=== PATIENT | male | born 1985 | race African-American/Black ===

== ENCOUNTER 2021-12-14 09:31 | Emergency (ER) | payer OTHER, SELFPAY ==
[2021-12-14 09:34] VITALS: BP 119/62; PULSE 68; RESP 15; TEMP 36.9; BMI 24.2
[2021-12-14] MEDS: Acetaminophen 325 MG TABLET 975 MG PO (10:16)
[2021-12-14] MEDS: cephALEXin 500 MG CAPSULE PO (10:17)
[2021-12-14] MEDS: Diphth,Pertus(ACell),Tet Adult 0.5 ML SYRINGE IM (10:18)
[2021-12-14] MEDS: Lidocaine HCl 2 % MPF 5 ML VIAL SUBCUT (10:20)
--- NOTE | 2021-12-14 10:46 | ED_ITS ---
HPI - Skin/Abscess/Foreign Bdy General Chief complaint: Wound/Laceration Stated complaint: Head lac/work inj Time Seen by Provider: 12/14/21 10:07 Source: patient Mode of arrival: ambulatory Limitations: no limitations History of Present Illness HPI narrative: 35-year-old male presenting to the ED with complaints of a head injury while he was at work he said he stood up and hit himself on the toilet paper dispenser and noticed some blood at the top of his head he did not lose consciousness and he is not on any blood thinners. He reports that he does not believe that the head injury was that significant he reports that he actually had some tenderness palpation and soft tissue swelling to his scalp and he was unsure why but he believes he might have an abscess. He denies any other symptoms complaints conc erns or injuries at this time. MD complaint: abscess/boil Onset (ago): day(s) Location: head Severity: moderate Quality: aching and constant Pain Consistency: constant Relieving factors: none Exacerbating factors: palpation Context: none Associated symptoms: denies other symptoms Treatments prior to arrival: none Related Data Previous Rx's Medication Instructions Recorded cephalexin 500 mg capsule 500 mg PO Q6H 10 Days #40 cap 12/14/21 doxycycline monohydrate 100 mg 100 mg PO BID 10 Days #20 tab 12/14/21 tablet ibuprofen 800 mg tablet 800 mg PO Q8H PRN #14 tab 12/14/21 tramadol 50 mg tablet 50 mg PO Q8H PRN #14 tab 12/14/21 Allergies Allergy/AdvReac Type Severity Reaction Status Date / Time No Known Allergies Allergy Unverified 06/01/20 17:36 Review of Systems Review of Systems: Constitutional : Denies history of same, Denies any other sites involved, Denies IV drug use, Denies history of MRSA, Denies swollen glands, Denies injury, Denies Fever, Denies Chills, + Sig Pain, Denies Systemic symptoms Cardiovascular : No Chest Pain, No SOB Respiratory : No Dyspnea Gastrointestinal : No abdominal pain Musculoskeletal : No Joint Swelling Skin : + abscess with surrounding erythema, No skin laceration, No Foreign bodies, No spreading rash, Denies bites, Denies discharge, Neuro : No Weakness, No Numbness/tingling Psych : No SI/HI/thoughts of self injury Yes all other systems are reviewed and are negative PMFSH Past Medical History Attestation statement: The following information was validated with the patient. Social History Social History Advance Directives: No Advance Directives Information Provided: No Physical Exam Vital Signs: Vital Signs: Last Vital Signs Temp 98.4 F 12/14/21 09:34 Pulse 68 12/14/21 09:34 Resp 15 12/14/21 09:34 BP 119/62 12/14/21 09:34 BMI result Body Mass Index 24.2 vital signs have been reviewed as normal and appeared to be correct. Blood pressure normal Heart rate normal. Respiration rate normal. Temperature normal. Oxygen saturation normal. Appearance: Alert. Oriented X3. No acute distress. Head: To the top of the patient's scalp left parietal aspect patient has an abscess with mild bloody drainage and surrounding erythema. No foreign bodies or obvious scalp depression. No deformities noted. The rest of the head is within normal limits and atraumatic. Eyes: PERRLA. EOMI. Conjunctiva and sclera normal. Eyelids normal. ENT: Pharynx normal. Uvula midline. Moist mucous membranes. Neck: Normal inspection. Neck supple. FROM. Nontender. CVS: Normal heart rate and rhythm. Respiratory: No respiratory distress. Painless inspiration. Skin: Skin warm and dry. Normal skin color. Normal skin turgor. No rashes/lesions/lacerations noted. Extremities: No lower extremity edema. Extremities exhibit normal range of motion. Extremities nontender. Neuro: Oriented X 3. No motor deficit. No sensory deficit. Reflexes normal. Normal steady gait. No focal neuro deficits noted. Vascular: + radial pulses/+ 2 distal pedal pulses/+2 dorsalis pedis b/l. Normal cap refill. No cyanosis noted to upper extremity nails and lower extremity toes nails. Course Course Course Narrative: IMP/Plan: abscess. No systemic toxicity, and pt looks well. + surrounding cellulitis. Not c/w nec fasc/ myositis/ DVT/ osteomyelitis. patient now status post I&D of abscess and patient tolerated procedure well. tetanus update at this time. No complications. No labs or imaging indicated at this time. Will DC home antibiotics and symptomatic treatment instructions return if any new or worsening symptoms to follow up with primary care provider. Patient understands agrees this plan. MDM - Skin/Abscess/Foreign Bdy Medical Records Attestation: I reviewed the patient's medical records. Procedures Abscess I/D Site: scalp Side (if applicable): left Local Anesthetic: lidocaine 2% Amount of anesthesia used (mL): 4 Technique: incised with blade Amount of fluid expressed (mL): 5 Sent for culture/gram staining?: No Irrigation: Yes Packing used?: none Complications: other (No complication) Discharge Plan Discharge Clinical Impression: Abscess, Head injury, Work related injury Patient Disposition: Home, Self-Care Instructions: Head Injury (ED), Return to Work Instructions (ED), Abscess Incision and Drainage (DC) Prescriptions: New doxycycline monohydrate 100 mg tablet 100 mg PO BID 10 Days Qty: 20 0RF cephalexin 500 mg capsule 500 mg PO Q6H 10 Days Qty: 40 0RF ibuprofen 800 mg tablet 800 mg PO Q8H PRN (Reason: pain) Qty: 14 0RF tramadol 50 mg tablet 50 mg PO Q8H PRN (Reason: pain) Qty: 14 0RF Rx Instructions: May partially fill upon patient request Referrals: [facility] [Provider Group] - 2 days Stand Alone Forms: Work/School Release
== END 2021-12-14 11:17 | disposition home or self-care (01) ==
PROVIDERS: Emergency Provider Emergency Medicine
DX: S09.90XA Unspecified injury of head, initial encounter (principal); W22.09XA Striking against other stationary object, initial encounter; L02.811 Cutaneous abscess of head [any part, except face]; Y93.89 Activity, other specified; Y92.59 Other trade areas as the place of occurrence of the external cause; Y99.0 Civilian activity done for income or pay
CPT/HCPCS: 10060; 90471; 90715; 99284

== ENCOUNTER 2022-07-25 12:40 | Outpatient (REF) | payer MEDICAID, SELFPAY ==
--- NOTE | ~2022-07-25 | CT_ITS ---
EXAMINATION: CT ABDOMEN AND PELVIS WITH CONTRAST CLINICAL INFORMATION: Ventral hernia COMPARISON: None TECHNIQUE: Multidetector volumetric images were obtained from the superior aspect of the liver through the pubic symphysis following administration 85 mL of Omnipaque 350 intravenous contrast. Sagittal and coronal reformatted images were obtained on the technologist's workstation. Oral contrast: No This CT examination was performed using dose optimization techniques as appropriate, variously including the following: *Automated exposure control *Adjustment of mA and/or kV according to patient size (this includes techniques or standardized protocols for targeted exams where dose is matched to indication/reason for exam; i.e. extremities or head) *Use of iterative reconstruction technique DLP: 274 mGy-cm FINDINGS: LUNG BASES: The visualized lung bases are unremarkable. LIVER, GALLBLADDER, AND BILIARY TREE: There are innumerable small liver low-attenuation lesion in the liver probably representing small cysts or biliary hamartomas, largest measuring 6 mm. The gallbladder is unremarkable with no evidence of radiopaque gallstones, gallbladder wall thickening, or obvious pericholecystic inflammatory changes. PANCREAS: Unremarkable. SPLEEN: Unremarkable. ADRENAL GLANDS: Unremarkable. KIDNEYS AND URETERS: The kidneys are normal in size, shape, and attenuation. No hydronephrosis, hydroureter, or calculi seen. No perinephric stranding. BLADDER: Unremarkable. GASTROINTESTINAL TRACT: The small and large bowel are unremarkable. The appendix is unremarkable. ABDOMINAL WALL: No significant hernia is appreciated. There is increased attenuation of the subcutaneous fat in the upper midline abdominal wall/supraumbilical region for example sagittal reconstructed image 54 series 5. No defect in the abdominal wall is appreciated. This area could be better evaluated with abdominal wall ultrasound with the patient performing Valsalva maneuver. LYMPH NODES: Normal. VASCULAR: Unremarkable. PELVIC VISCERA: Unremarkable. OSSEOUS STRUCTURES: Unremarkable. CT/CT abdomen pelvis w IV con IMPRESSION: Innumerable small low-attenuation liver lesions probably representing small cysts or biliary hamartomas. No hernia seen. There is increased attenuation of the subcutaneous fat in the upper midline abdominal wall/supraumbilical region for example sagittal reconstructed image 54 series 5. No defect in the abdominal wall is appreciated. This area could be better evaluated with abdominal wall ultrasound with the patient performing Valsalva maneuver if clinically indicated. Fleischner guidelines were followed.
[2022-07-25] MEDS: iohexoL 350 MG/ML 100 ML INFUS..BTL IV (15:01)
[2022-07-25] MEDS: Barium Sulfate Oral (Vanilla) 450 ML ORAL.SUSP 900 ML PO (15:02)
== END 2022-07-25 12:41 | disposition home or self-care (01) ==
LOC: HO.CT 12:40
PROVIDERS: PCP Registered Nurse; Visit Provider Registered Nurse
DX: K43.9 Ventral hernia without obstruction or gangrene (principal)
CPT/HCPCS: 74177; Q9967

== ENCOUNTER → 2022-08-13 11:30 | Outpatient (BNVA) | payer MEDICAID, SELFPAY | PROVIDERS: PCP Registered Nurse; Visit Provider Surgery | DX: K43.9 Ventral hernia without obstruction or gangrene (principal); B36.0 Pityriasis versicolor | CPT/HCPCS: 99202 ==

== ENCOUNTER → 2022-08-27 11:35 | Outpatient (BNVA) | payer MEDICAID, SELFPAY | PROVIDERS: PCP Registered Nurse; Visit Provider Surgery | DX: K43.9 Ventral hernia without obstruction or gangrene (principal); B36.0 Pityriasis versicolor | CPT/HCPCS: 99212 ==

== ENCOUNTER → 2022-09-24 15:48 | Outpatient (BNVA) | payer MEDICAID, SELFPAY | PROVIDERS: PCP Registered Nurse; Visit Provider Surgery | DX: K43.9 Ventral hernia without obstruction or gangrene (principal) | CPT/HCPCS: 99212 ==

== ENCOUNTER 2022-11-21 09:37 | Day surgery (SDC) | payer MEDICAID, SELFPAY ==
[2022-11-18 10:33] VITALS: BMI 24.2
--- NOTE | 2022-11-20 10:56 | HO.ANESPROP2 ---
Documented by User: Sarai Kirby NP 11/20/22 10:56 HPI - Anesthesia Eval Consult details Narrative: 36yo M for Hernia Repair Ventral possible mesh PMFSH Active Problems Active Problems: All Active Problems (Updated 11/18/22 @ 10:28 by Alicia Garcia RN) Ventral hernia (Acute) Tinea versicolor (Acute) Past Medical History Medical History (Updated 11/18/22 @ 10:28 by Alicia Garcia RN) ADHD Depression Eczema Social History Social History Advance Directives: No Advance Directives Information Provided: Yes Meds Allergies Allergy/AdvReac Type Severity Reaction Status Date / Time No Known Allergies Allergy Verified 11/18/22 10:28 Home Medications Medication Instructions Recorded Confirmed Last Taken Type econazole 1 % topical cream appl topical BID 08/13/22 09/24/22 Unknown History triamcinolone acetonide 0.1 % 1 appl topical BID 08/13/22 11/18/22 Unknown History topical cream fluconazole 150 mg tablet 300 mg PO QWEEK 09/24/22 11/18/22 Unknown History Exam Exam Date and Time: November 20, 2022 1056 Height,Weight and Vital Signs: Height 5 ft 6 in Weight 68.039 kg Assessment and Plan Assessment Anesthesia Assessment: Chart Reviewed Documented by User: Roby Llanes MD 11/21/22 10:15 PMFSH Past Medical History Medical History (Updated 11/18/22 @ 10:28 by Alicia Garcia RN) ADHD Depression Eczema Family History Family history of problems with anesthesia: No Surgical History History of Problems with Anesthesia: No Social History Social History Advance Directives: No Advance Directives Information Provided: Yes Meds Allergies Allergy/AdvReac Type Severity Reaction Status Date / Time No Known Allergies Allergy Verified 11/18/22 10:28 Home Medications Medication Instructions Recorded Confirmed Last Taken Type econazole 1 % topical cream appl topical BID 08/13/22 09/24/22 Unknown History triamcinolone acetonide 0.1 % 1 appl topical BID 08/13/22 11/18/22 Unknown History topical cream fluconazole 150 mg tablet 300 mg PO QWEEK 09/24/22 11/18/22 Unknown History Exam Airway Mallampati Class: II TM Dist: >3cm Neck ROM: Full Assessment and Plan Assessment Anesthesia Assessment: Anesthesia Plan Discussed Final Anesthetic Review Family History of Problems with Anesthesia: No History of Problems with Anesthesia: No NPO: Yes ASA Class: I Final Preanesthetic Review: No Changes in Pt Med Stat, Meds/Allgs Chart Reviewed, Consent Obtained/Reviewed and Anes Risks/Benef Reviewed Patient Risk: Low Procedure Risk: Low Anesthetic Plan Anesthetic Plan: GA Disposition: Standard PACU
[2022-11-21] MEDS: Lactated Ringers 1,000 ML 100 ML IVCONT (10:02)
[2022-11-21 10:22] VITALS: BP 112/57; PULSE 67; RESP 18; TEMP 36.6; O2SAT 99
--- NOTE | 2022-11-21 11:41 | MHC.SHP ---
Pre-Procedural Eval Section A Date of Service: 11/21/22 The patient is an INPATIENT: No The History & Physical has been completed within 30 days and I have reviewed it.: Yes Section B Chief Complaint: Ventral hernia without obstruction or gangrene Allergies: Allergies Allergy/AdvReac Type Severity Reaction Status Date / Time No Known Allergies Allergy Verified 11/21/22 10:25 Plan I have reviewed the history and physical and performed a pertinent physical examination on my patient. No changes have occurred unless specified. Time Spent With Patient Time: Total time managing care of this patient today ____ minutes.
--- NOTE | 2022-11-21 11:42 | W.PM.OPN ---
Operative Note Operative Note Date of Service: 11/21/22 Narrative: Preop diagnosis: [incarcerated ventral hernia] Postop diagnosis: [Same, 10mm defect] Procedure: [] Surgeon: Chacho Bowers MD Assist: [] Anesthesia: [General LMA & local (Lidcaine/Marciane mix)] Estimated blood loss: [3cc] Specimen: [none] Intraoperative findings: [10mm fascial defect with viable properitoneal fat (reduced)] Indications: [The patient is a 36-year-old gentleman who has a small lipomatous mass consistent with a ventral hernia, however on CT scan, it was not clearly defined. Given that the patient is extremely active in the mass is more symptomatic when he is exerting himself, I suspect he has an incarcerated ventral hernia and I recommended repair. CT did not demonstrate a hernia defect as per the radiologist, however I felt there was a small fascial defect. However, I also reviewed the possible issue of finding only a lipoma in which case a symptomatic lipoma should be resected. Activity restrictions were discussed with the patient and apparently understood. The option of a 2nd opinion or continued observation was also reviewed but declined. The inherent risks s to hernia repair, possible lipoma excision, including bleeding, urinary retention, infection, bowel injury, effects of general anesthesia, seroma, and hernia recurrence, especially in the setting of increasing weight gain/obesity were all discussed at length in the patient's questions seemed to be answered. The possible need for seroma drainage or reoperation in the event of a complication such as mesh infection, bleeding/hematoma or symptomatic/infected seroma were also reviewed.] Procedure: [The patient was identified by myself in the preoperative holding area and again an operating room 3. 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 He was induced and general anesthesia administered by the anesthesiologist. Ancef per weight based protocol was ordered. Abdomen was widely prepped and draped in the usual manner for surgery using chlorprep. Preemptive local of Lidocaine, 1&/Marcaine, 0.5% with epi was infiltrated in the skin and subcutaneous tissues and a linear incision made sharply over the hernia. Dissection was carried down to the umbilical base and the umbilicus circumferentially dissected and the hernia sac dissected from the posterior umbilical dermis taking care to avoid injury. The hernia was reduced and the fascial defect transversely closed with 0 Polypropylene sutures. The operative field was inspected for hemostasis then the umbilical dermis tacked down to the fascia and hernia repair with 3-0 Polysorb suture. Subcutaneous tissues were closed with 3-0 Polysorb suture and the skin closed with a running 4-0 Monocryl subcuticular suture. There is washed and dried, Mastisol and Steri-Strips applied followed by sterile dressings. The patient tolerated the procedure well and was sent to the recover in stable condition. All sponge instrument counts were correct x2. At the patient's request I contacted Thang at [phone] to apprise him of the operation, pain management and activity restrictions. His questions seemed to be satisfactorily answered.]
[2022-11-21 12:49] VITALS: BP 125/86; PULSE 62; RESP 20; TEMP 36.4; O2SAT 98
[2022-11-21 12:54] VITALS: BP 125/88; PULSE 70; RESP 20; O2SAT 100
[2022-11-21 12:59] VITALS: BP 119/85; PULSE 61; RESP 18; O2SAT 100
[2022-11-21 13:04] VITALS: BP 123/75; PULSE 53; RESP 18; O2SAT 100
[2022-11-21 13:18] VITALS: BP 118/76; PULSE 65; RESP 16; TEMP 36.4; O2SAT 100
== END 2022-11-21 14:27 | disposition home or self-care (01) ==
LOC: HO.SSS 09:38
PROVIDERS: PCP Registered Nurse; Visit Provider Surgery
PROC: (CPT 49591; principal; 2022-11-21 11:10)
DX: K43.9 Ventral hernia without obstruction or gangrene (principal); L30.9 Dermatitis, unspecified; B36.0 Pityriasis versicolor; F90.9 Attention-deficit hyperactivity disorder, unspecified type; F32.A Depression, unspecified; Z79.899 Other long term (current) drug therapy
CPT/HCPCS: 49591; J0690; J2250; J3010

== ENCOUNTER → 2022-11-29 09:57 | Outpatient (BNVA) | payer MEDICAID, SELFPAY | PROVIDERS: PCP Registered Nurse; Referring Provider Registered Nurse; Visit Provider Surgery ==

== ENCOUNTER 2024-05-25 16:11 | Outpatient (REF) | payer MEDICAID, SELFPAY ==
[2024-05-26 04:55] LABS: HIV AB/AG Nonreactive (Nonreactive); HIV Num 1 0.06 S/CO (0.00-0.99)
[2024-05-27 14:34] LABS: RPR Rapid Plasma Reagin REACTIVE (NON-REACTIVE)
== END 2024-05-25 16:12 | disposition home or self-care (01) ==
LOC: HO.HHCL 16:11
PROVIDERS: Visit Provider Nurse Practitioner Primary Care
DX: R21 Rash and other nonspecific skin eruption (principal); J02.9 Acute pharyngitis, unspecified
CPT/HCPCS: 36415; 86592; 86593; 87389

== ENCOUNTER 2024-06-01 10:46 | Outpatient (REF) | payer MEDICAID, SELFPAY ==
[2024-06-03 08:33] LABS: RPR Rapid Plasma Reagin REACTIVE (NON-REACTIVE)
== END 2024-06-01 10:47 | disposition home or self-care (01) ==
LOC: HO.HHCL 10:46
PROVIDERS: Visit Provider Nurse Practitioner Primary Care
DX: A53.9 Syphilis, unspecified (principal)
CPT/HCPCS: 36415; 86592; 86593

== ENCOUNTER 2024-10-29 12:03 | Outpatient (REF) | payer MEDICAID, SELFPAY ==
--- OUTSIDE RECORDS SUMMARY | 2024-10-29 12:41 | XMS_ITS | Encounter Summary ---
Author Organization [employer] Address [address] [facility] [address] [place] [address] Care Team Providers Care Sales And Support Center Agent Name Role Phone ChilangoTiffany bautista Primary Care Provider + [phone] Reason for Visit * Reason Onset Date Comments Lab Orders 09/28/2024 Encounter Details Date Type Department Care Team (Late st Contact Info) Description 09/28/2024 Telephone [facility] [address] [place] [address] Jordyn Proctor RN Lab Orders Social History Tobacco Use Types Packs/Day Years Used Date Smoking Tobacco: Some Days Cigarettes Smokeless Tobacco: Never Comments:Socially/ Occasiona lly Alcohol Use Standard Drinks/Week Comments Yes 2 (1 standard drink = 0.6 oz pur e alcohol) Occasionally Sex and Gender Information Value Date Recorded Sex Assigned at Male 08/14/2022 2:46 PM EST Legal Sex Male 2:46 PM EST Gender Identity Male 08/14/2022 2:46 PM EST Sexual Orientation Bisexual 08/14/2022 2: 46 PM EST documented as of this encounter Miscellaneous Notes * Telephone Encounter - Jordyn Proctor RN - 09/29/2024 11:48 AM EST Telephone call x3 to pt to advise of below message and lab orders. No answer, left voicemail. No other number on file. Will send letter to address on file. * Telephone Encounter - Jordyn Proctor RN - 09/28/2024 1:13 PM EST Telephone call x2 to pt to advise to get outstanding labs done. No answer, left voicemail. Will task to call again. * Telephone Encounter - Jordyn Proctor RN - 09/28/2024 9:29 AM EST Telephone call to pt to advise of below message from Sara Carr NP. No answer, left voicemail to call back [facility]. Will retask to call again. -- PCP Sara Carr NP Please outreach pt to remind him to get repeat labs done to confirm treatment for syphilis was successful. Thanks. documented in this encounter Plan of Treatment Not on file documented as of this encounter Visit Diagnoses Not on filedocumented in this encounter Care Teams Sales And Support Center Agent Relationship Specialty Start Date End Date Tiffany Bailey DO [address] [place] [address] PCP - General Family Medicine 05/26/24 documented as of this encounter
--- OUTSIDE RECORDS SUMMARY | 2024-10-29 12:41 | XMS_ITS | Encounter Summary ---
Author Organization [employer] Address [address] [facility] [address] [place] [address] Care Team Providers Care Chronometer Assembler Name Role Phone Tiffany Bailey DO Primary Care Provider + [phone] Reason for Visit * Reason Comments Pre-visit Planning Pre visit planning L VM Encounter Details Date Type Department Care Team ([facility] st Contact Info) Description 10/19/2024 Patient Outreach [facility] [address] [place] [address] Tiffany Bailey DO [address] [place] [address] Pre-visit Planning (Pre visit planning LVM ) Social History Tobacco Use Types Packs/Day Years [...] PM EST documented as of this encounter Progress Notes * Christi Saunders - 10/19/2024 1:50 PM EST RUBY Arreola placed outbound call to patient to complete pre-visit planning. No answer at this time.Patient name and were not confirmed. CC left voicemail requesting return call. Direct contact information provided. documented in this encounter Plan of Treatment Not on file documented as of this encounter Visit Diagnoses Not on filedocumented in this encounter Care Teams Chronometer Assembler Relationship Specialty Start Date End Date Tiffany Bailey DO [address] [place] [address] PCP - General Family Medicine 05/26/24 documented as of this encounter
--- OUTSIDE RECORDS SUMMARY | 2024-10-29 12:41 | XMS_ITS | Clinical Summary ---
Author Organization [employer] Address [address] [facility] [address] [place] [address] Care Team Providers Care First Responder Name Role Phone ChilangoTiffany bautista Primary Care Provider [phone] Allergies Active Allergy Reactions Criticality Noted Date Comments Coconut Fatty Acid Rash,Shortness of breath,Swelling High 07/07/2017 Coconut Flavoring Agent (Non-Screening) 07/23/2022 Other reaction(s): Hives Medications fluconazole (Diflucan) 150 MG tabletIndication s:Tinea versicolor Take 2 tablets by mouth once weekly x 2 weeks 4 tablet 2 Active Additional Information Patient not taking.Reported on 03/28/2023 econazole nitrate 1 % creamIndications :Atopic dermatitis, unspecified type APPLY BY TOPICAL ROUTE 2 TIMES EVERY DAY TO THE AFFECTED AND SURROUNDING AREAS OF SKIN 85 g 1 3 Active cyclobenzaprine (Flexeril) 10 MG tablet Take 1 tablet (10 mg) by mouth 3 times daily for 10 days. 30 tablet 4 Active triamcinolone (Kenalog) 0.1 % creamIndications :Eczema, unspecified type Apply topically 2 times daily. As needed for eczema 80 g 1 4 Active ciclopirox (Penlac) 8 % solutionIndicati ons:Fungal toenail infection Apply topically 2 times daily. 6 mL 5 4 Active nicotine polacrilex (Nicorette) 4 MG gum Chew 1 each (4 mg) if needed for smoking cessation. 100 each 5 11/29/19 25 Active Active Problems Problem Noted Date Diagnosed Date Visit for preventive health examination 10/29/19 25 Assessment & Plan (10/29/2024 12:07 PM EST): Discussed with patient re increase fresh fruit and vegetable intake. Counseled re moderate exercise as tolerated, up to 20min/d Patient feels safe at home. Eye exam: overdue will refer to eye clinic Vaccinations: influenza immunization today, order TB test and immunization titers. Dental visit: overdue, I gave him information about our dental clinic to make an appointment. Pruritus of groin in male 10/29/2024 Assessment & Plan (10/29/2024 12:10 PM EST): No evidence of eczema or rash Advised to use moisturizing cream. Will order labs. Decreased vision in both eyes 10/29/2024 Smoking 10/29/2024 Atopic dermatitis 07/23/2022 Attention deficit hyperactivity disorder 022 Depressive disorder 07/23/2022 Cough 04/01/2021 Acute pharyngitis 03/29/2021 Encounters Date Type Department Care Team Description 10/29/2024 10:45 AM EST Office Visit [address] [address] Nata Loredo MD Smoking (Primary Dx); Depressive disorder; Visit for preventive health examination; Pruritus of groin in male; Decreased vision in both eyes; Exposure to STD; Need for vaccination 10/29/2024 Travel 10/28/[address] [address] Tiffany Bailey DO Chart prep 10/19/2024 Patient Outreach [address] [address] Tiffany Bailey DO Pre-visit Planning (Pre visit planning LVM ) 09/28/[address] [address] Jordyn Proctor, clinic physician Orders 09/28/2024 Orders Only [address] [address] Sara Carr ANP History of syphilis (Primary Dx) from Last 3 Months Immunizations Name Administration Dates Next Due Hep A, Adult 03/28/2023 Hep B, adult 03/28/2023 Influenza, seasonal, injectable, preservative fr ee 10/29/2024 Pneumococcal Polysaccharide PPSV23 07/07/2017 Tdap 12/14/2021,07/07/2017 Social History Tobacco Use Types Packs/Day Years Used Date Smoking Tobacco: Some Days Cigarettes Smokeless Tobacco: Never Tobacco Cessation:Ready to Q uit: Not Asked; Counseling Given: Not Answered Comments:Socially/ Occasionally Alcohol Use Standard Drinks/Week Comments Yes 2 (1 standard drink = 0.6 oz pur e alcohol) Occasionally Sex and Gender Information Value Date Recorded Sex Assigned at Male 08/14/2022 2:46 PM EST Legal Sex Male 2:46 PM EST Gender Identity Male 08/14/2022 2:46 PM EST Sexual Orientation Bisexual 08/14/2022 2: 46 PM EST Last Filed Vital Signs Vital Sign Reading Time Taken Comments Blood Pressure 151/84 10/29/2024 10:58 AM EST Pulse 89 10/29/2024 10:58 AM EST Temperature 35.8 ??C (96.5 ??F) 10/29/2024 10:[address] Respiratory Rate 18 05/25/2024 3:21 PM EDT Oxygen Saturation 100% 10/29/2024 10:58 AM EST Inhaled Oxygen Concentration - - Weight 67.4 kg (148 lb 8 oz) 10/29/2024 10:58 AM EST Height 166.4 cm (5' 5.5 ) 10/29/2024 10:58 AM ES T Body Mass Index 24.34 10/29/2024 10:58 AM EST Plan of Treatment Health Maintenance Due Date Last Done Comments Depression Screening 1987 SDOH Screening 1987 Alcohol/Substance Use Screening 1999 Family Planning (PISQ) 12/22/2002 Pneumococcal Vaccine: Pediatrics (0 to 5 Years) and At-Risk Patients (6 to 49) Years) (2 of 2 - PCV) 07/07/2018 07/07/2017 Hepatitis B Vaccines (2 of 3 - 19+ 3-dose series) 04/25/2023 03/28/2023 COVID-19 Vaccine ( - 2023-2 5 season) 2024 11/06/2022, 01/11/2021, 12/21/2020 Tobacco Screening 10/29/2025 10/29/2024 Lipid Panel 07/23/2027 07/23/2022 DTaP/Tdap/Td Vaccines (3 - T d or Tdap) 12/15/2031 12/14/2021, 07/07/2017 Zoster Vaccines (1 of 2) 12/22/2037 RSV Patients and Patients Aged 60 years or older (1 - 1-dose 75+ series) 12/22/2062 Hepatitis C Screening Completed 07/23/2022 Hepatitis A Vaccines Aged Out 03/28/2023 No long er eligible based on patient's age to complete this topic HIV Screening Completed 05/25/2024, 07/23/2022 Influenza Vaccine Completed 10/29/2024 HIB Vaccines Aged Out No longer eligi ble based on patient's age to complete this topic HPV Vaccines Aged Out No longer eligi ble based on patient's age to complete this topic IPV Vaccines Aged Out No longer eligi ble based on patient's age to complete this topic Meningococcal Vaccine Aged Out No kamran jerome eligible based on patient's age to complete this topic RSV under 20 months Aged Out No longe r eligible based on patient's age to complete this topic Rotavirus Vaccines Aged Out No longer eligible based on patient's age to complete this topic Procedures Procedure Name Priority Date/Time Associated Diagnosis Comments HIV 1/2 ANTIGEN/ANTIBODY, FOURTH GENERATION W/RFL Routine 05/25/2024 4:12 PM EDT Acute pharyngitis, unspecified etiology ZZZ HISTORICAL HEPATITIS C AB W/REFL TO HCV RNA, QN, PCR Routine 07/23/2022 4:04 PM EST LIPID PANEL, STANDARD Routine 07/23/2022 4:04 PM EST from Last 3 Months or Most Recently Relevant to Health Maintenance Results * HIV-1/2 Antigen and Antibodies, Fourth Generation, with Reflexes (05/25/2024 4:12 PM EDT) HIV AB/AG Nonreactive Nonreactive [facility] Comment:HIV-1 p24 Ag and/or HIV-1/HIV-2 Ab not detected.A test result that is nonreactive does not exclude thepossibility of exposure to or infection with HIV-1 and/orHIV-2. Nonreactive results in this assay for individualswith prior exposure to HIV-1 and/or HIV-2 may be due toantigen and antibody levels that are below the limit ofdetection of this assay.The [employer] HIV Ag/Ab Combo assay result andsupplemental assay results should be interpreted inconjunction with the patient's clinical presentation,history and other laboratory results. If the results areinconsistent with clinical evidence, additional testing issuggested to confirm the result. Blood Venous blood specimen / Unknown 05/25/2024 4:12 PM EDT 05/25/2024 5:48 PM EDT Sara Carr ANP LAB BLOOD ORDERABLES Final Resul t [facility] [address] [place] [phone] * HEPATITIS C AB W/REFL TO HCV RNA, QN, PCR (07/23/2022 4:04 PM EST) HEPATITIS C ANTIBODY NON-REACTI VE NON-REACT PUNEET [facility] INDEX 0.03 <1.00 [facility] Comment: ?? HCV antibody was non-reactive. There is no laboratory ?? evidence of HCV infection. ?? In most cases, no further action is required. However, if recent HCV exposure is suspected, a test for HCV RNA (test code 18871) is suggested. ?? For additional information please refer to http://education.[facility].HeyAnita/faq/MRS65v2 (This link is being provided for informational/ educational purposes only.) ?? 07/23/2022 4:04 PM EST Arina Story E LEARNING MANAGER HISTORICAL/NON ORDERABLE L ABS Final Result Performing Organization Address City/[facility]/ZIP Co de Phone Number [facility] * LIPID PANEL, STANDARD (07/23/2022 4:04 PM EST) Chol/HDLC Ratio 2.7 <5.0 (calc) [facility] Cholesterol, Total 173 <200 mg/dL [facility] HDL Cholesterol 64 > OR = 40 mg/dL [facility] LDL Cholesterol 94 mg/dL (calc) [facility] Comment: Reference range: <100 ?? Desirable range <100 mg/dL for primary prevention; ?? <70 mg/dL for patients with CHD or diabetic patients ?? with > or = 2 CHD risk factors. ?? LDL-C is now calculated using the Chioma ?? calculation, which is a validated novel method providing ?? better accuracy than the Friedewald equation in the ?? estimation of LDL-C. ?? Chacho SIBLEY et al. REUBEN. 2013;310(19): 6656-9515 ?? (http://education.[facility]/faq/OPP464) Non-HDL Cholesterol 109 <130 mg/dL (calc) [facility] Comment: For patients with diabetes plus 1 major ASCVD risk ?? factor, treating to a non-HDL-C goal of <100 mg/dL ?? (LDL-C of <70 mg/dL) is considered a therapeutic ?? option. Triglycerides 60 <150 mg/dL [facility] 07/23/2022 4:04 PM EST Arinashiva Story E LEARNING MANAGER LAB BLOOD ORDERABLES Final Result [facility] from Last 3 Months or Most Recently Relevant to Health Maintenance [facility] F[facility] Care Teams First Responder Relationship Specialty Start Date End Date Tiffany Bailey DO [address] [place] [address] PCP - General Family Medicine 05/26/24
--- OUTSIDE RECORDS SUMMARY | 2024-10-29 12:41 | XMS_ITS | Encounter Summary ---
Author Organization [facility] [employer] Address [address] [place] [address] [address] [place] [address] Care Team Providers Care Bpm Developer Name Role Phone Lea Vargas Primary Care Provider [phone] Name, Oracio GAMING Primary Care Provider [phone] Tiffany Bailey DO Primary Care Provider [phone] Reason for Referral * Imaging (Routine) - Closed Specialty Diagnoses / Procedures Referred By Malena russell Referred To Contact Radiology Diagnoses Venous malformation Procedures Mr Brain w/ and w/o Contrast Lea Vargas FNP [address] [place] [address] Phone: tel: fax: [facility] [address], [address] [address] Phone: tel: fax: Referral ID Status Reason Start Date Expiration Date Visits Re quested Visits Authorized [id number] Closed 12/26/2023 12/25/2024 1 1 Encounter Details Date Type Department Care Team (Late st Contact Info) Description 12/26/2023 Orders Only [facility] [address] [place] [address] Lea Vargas FNP [address] [place] [address] Venous malformation (Primary Dx) Social History Tobacco Use Types Packs/Day Years [...] PM EST documented as of this encounter Plan of Treatment Not on file documented as of this encounter Procedures Procedure Name Priority Date/Time Associated Diagnosis Comments MR BRAIN W AND WO CONTRAST Routine 01/09/2024 Venous malformation documented in this encounter Results * Mr Brain w/ and w/o Contrast (01/09/2024) Anatomical Region Laterality Modality Brain Magnetic Resonan ce Lea TAYLOR IMG MRI PROCEDURES Final Result documented in this encounter Visit Diagnoses Diagnosis Venous malformation- Primary Congenital anomaly of the peripheral vascular system, unspecified site documented in this encounter Care Teams Bpm Developer Relationship Specialty Start Date End Date Lea Vargas FNP [address] [place] [address] PCP - General Family Medicine 12/19/23 05/13/24 Oracio Wilkes MD [address] [place] [address] PCP - General Internal Medicine 05/14/24 05/25/24 Tiffany Bailey DO [address] [place] [address] PCP - General Family Medicine 05/26/24 documented as of this encounter
--- OUTSIDE RECORDS SUMMARY | 2024-10-29 12:41 | XMS_ITS | Clinical Summary ---
Author Organization [facility] ity Address [address] [place] [address] Care Team Providers Care It Systems Administrator Name Role Phone Unavailable Primary Care Provider Unavailabl e Social History Tobacco Use Types Packs/Day Years Used Date Smoking Tobacco: Never Assessed Sex and Gender Information Value Date Recorded Sex Assigned at Not on file Legal Sex Male 9:51 AM EST Gender Identity Not on file Sexual Orientation Not on file Plan of Treatment Health Maintenance Due Date Last Done Comments DTaP,Tdap,and Td Vaccines (1 - Tdap) 12/22/2006 Hepatitis B Vaccines (1 of 3 - 19+ 3-dose series) 12/22/2006 COVID-19 Vaccine (2023-2 5 season) 2024 Influenza Vaccine (#1) 2024 HIB Vaccines Aged Out No longer eligi ble based on patient's age to complete this topic HPV Vaccines Aged Out No longer eligi ble based on patient's age to complete this topic Hepatitis A Vaccines Aged Out No long er eligible based on patient's age to complete this topic IPV Vaccines Aged Out No longer eligi ble based on patient's age to complete this topic MMR Vaccines Aged Out No longer eligi ble based on patient's age to complete this topic Meningococcal ACWY Vaccine Aged Out N o longer eligible based on patient's age to complete this topic Meningococcal B Vacine Aged Out No lo nger eligible based on patient's age to complete this topic Pneumococcal Vaccine: Pediat rics (0 to 5 Years) and At-Risk Patients (6 to 64 Years) Aged Out No longer eligible b ased on patient's age to complete this topic RSV Immunization Patients Un nancy 20 months Aged Out No longer eligible b ased on patient's age to complete this topic Varicella Vaccines Aged Out No longer eligible based on patient's age to complete this topic
--- OUTSIDE RECORDS SUMMARY | 2024-10-29 12:41 | XMS_ITS | Encounter Summary ---
Author Organization [facility] [employer] Address [address] [place] [address] [address] [place] [address] Care Team Providers Care Health Informatics Instructor Name Role Phone Tiffany Bailey DO Primary Care Provider [phone] Reason for Referral * Consultation (Routine) - Authorized Specialty Diagnoses / Procedures Referred By Contyennifer russell Referred To Contact Optometry Diagnoses Decreased vision in both eyes Nata Loredo MD [address] [place] [address] Phone: tel: fax: [facility] [address] [place] [address] Phone: tel: fax: Referral ID Status Reason Start Date Expiration Date Visits Requested Visits Authorized [id number] Authorized Consult and Treat 10/29/2024 10/29/2025 1 1 Reason for Visit * Reason Comments Annual Exam Encounter Details Date Type Department Care Team (Late st Contact Info) Description 10/29/2024 10:45 AM EST Office Visit [facility] [address] [place] [phone] Nata Loredo MD [address] [place] [phone] Smoking (Primary Dx); Depressive disorder; Visit for preventive health examination; Pruritus of groin in male; Decreased vision in both eyes; Exposure to STD; Need for vaccination Social History Tobacco Use Types Packs/Day Years [...] PM EST documented as of this encounter Last Filed Vital Signs Vital Sign Reading Time Taken Comments Blood Pressure 151/84 10/29/2024 10:58 AM EST Pulse 89 10/29/2024 10:58 AM EST Temperature 35.8 ??C (96.5 ??F) 10/29/2024 10:[address] Respiratory Rate - - Oxygen Saturation 100% 10/29/2024 10:58 AM EST Inhaled Oxygen Concentration - - Weight 67.4 kg (148 lb 8 oz) 10/29/2024 10:58 AM EST Height 166.4 cm (5' 5.5 ) 10/29/2024 10:58 AM ES T Body Mass Index 24.34 10/29/2024 10:58 AM EST documented in this encounter Miscellaneous Notes * Assessment & Plan Note - Anne Santana MA - 10/29/2024 12:10 PM EST Associated Problem(s): Pruritus of groin in male No evidence of eczema or rash Advised to use moisturizing cream. Will order labs. * Assessment & Plan Note - Anne Santana MA - 10/29/2024 12:07 PM EST Associated Problem(s): Visit for preventive health examination Discussed with patient re increase fresh fruit and vegetable intake. Counseled re moderate exercise as tolerated, up to 20min/d Patient feels safe at home. Eye exam: overdue will refer to eye clinic Vaccinations: influenza immunization today, order TB test and immunization titers. Dental visit: overdue, I gave him information about our dental clinic to make an appointment. documented in this encounter Plan of Treatment Scheduled Orders Name Type Priority Associated Diagnoses Orde r Schedule T-SPOT??.TB Lab Routine Visit for preventive health examination Expected: 10/29/2024 (Approximate), Expires: 10/29/2025 HIV-1/2 Antigen and Antibodies, Fourth Generation, with Reflexes Lab Routine Exposure to STD Expected: 10/29/2024 (Approximate), Expires: 10/29/2025 Hepatitis Panel, General Lab Routine Exposure to STD Expected: 10/29/2024 (Approximate), Expires: 10/29/2025 Measles, Mumps, and Rubella (MMR) Antibodies??(IgG) Panel, Immune Status Lab Routine Visit for preventive health examination Expected: 10/29/2024 (Approximate), Expires: 10/29/2025 Chlamydia/N. Gonorrhoeae RNA, TMA, Urogenitial Microbiology Routine Visit for preventive health examination Exposure to STD Ordered: 10/29/2024 RPR (Monitor) with Reflex to??Titer Lab Routine Exposure to STD Expected: 10/29/2024 (Approximate), Expires: 10/29/2025 Basic Metabolic Panel Lab Routine Pruritus of groin in male Expected: 10/29/2024 (Approximate), Expires: 10/29/2025 Hemoglobin A1c Lab Routine Pruritus of groin in male Expected: 10/29/2024 (Approximate), Expires: 10/29/2025 Scheduled Referrals Name Type Priority Associated Diagnoses Orde r Schedule Referral to Optometry Outpatient Referral Routine Decreased vision in both eyes Expected: 10/29/2024 (Approximate), Expires: 10/29/2025 documented as of this encounter Visit Diagnoses Diagnosis Smoking- Primary Tobacco use disorder Depressive disorder Depressive disorder, not elsewhere classified Visit for preventive health examination Pruritus of groin in male Decreased vision in both eyes Moderate or severe vision impairment, both eyes, impairment level not further specified Exposure to STD Need for vaccination Need for prophylactic vaccination and inoculation against unspecified single disease documented in this encounter Care Teams Health Informatics Instructor Relationship Specialty Start Date End Date Tiffany Bailey DO [address] [place] [address] PCP - General Family Medicine 05/26/24 documented as of this encounter
--- OUTSIDE RECORDS SUMMARY | 2024-10-29 12:41 | XMS_ITS | Encounter Summary ---
Author Organization [employer] Address [address] [facility] 7[address] [place] [address] Care Team Providers Care Metal Mockup Maker Name Role Phone Lea Vargas Primary Care Provider [phone] Name, rOacio GAMING Primary Care Provider [phone] Tiffany Bailey DO Primary Care Provider [phone] Encounter Details Date Type Department Care Team (Late st Contact Info) Description 12/22/2023 Telephone [facility] [address] [place], [place] [phone] Lea Vargas FNP [address] [place], [place] [phone] Social History Tobacco Use Types Packs/Day Years [...] encounter Miscellaneous Notes * Telephone Encounter - Yesenia Rodriguez - 12/22/2023 12:57 PM EDT T[facility] from [facility] calling to inform referral that was sent on 12/19/23 needs to be changed to MRI with and without contrast / Any questions please contact phone #[phone]. documented in this encounter Plan of Treatment Not on file documented as of this encounter Visit Diagnoses Not on filedocumented in this encounter Care Teams Metal Mockup Maker Relationship Specialty Start Date End Date Lea Vargas FNP [address] [place] [address] PCP - General Family Medicine 12/19/23 05/13/24 Oracio Wilkes MD [address] [place] [address] PCP - General Internal Medicine 05/14/24 05/25/24 Tiffany Bailey DO [address] [place] [address] PCP - General Family Medicine 05/26/24 documented as of this encounter
--- OUTSIDE RECORDS SUMMARY | 2024-10-29 12:41 | XMS_ITS | Encounter Summary ---
Author Organization [employer] Address [address] [facility] 7t [place] [address] Care Team Providers Care Track Car Operator Name Role Phone Tiffany Bailey DO Primary Care Provider [phone] Encounter Details Date Type Department Care Team (Latest Contact Info) Description 10/29/2024 Travel Social History Tobacco Use Types Packs/Day Years [...] on filedocumented in this encounter Care Teams Track Car Operator Relationship Specialty Start Date End Date Tiffany Bailey DO [address] [place] [address] PCP - General Family Medicine 05/26/24 documented as of this encounter
--- OUTSIDE RECORDS SUMMARY | 2024-10-29 12:41 | XMS_ITS | Clinical Summary ---
Author Organization [facility] Address [address] [place] [address] Care Team Providers Care Chiller Tender Name Role Phone Jerald Borges BRANDON Primary Care Provider [phone] Source Comments PLEASE NOTE, if this patient is a minor, it may be UNLAWFUL to discuss sensitive information that is contained in these records (such as FAMILY PLANNING, MENTAL HEALTH or SUBSTANCE ABUSE) with the minor patient's parent or other person without the patient's specific authorization.[facility] Allergies Active Allergy Reactions Criticality Noted Date Comments Coconut SOB,Rash,Swelling 07/07/2017 Medications triamcinolone (KENALOG) 0.1 % ointmentIndicati ons:Eczema, unspecified type Apply topically 2 (two) times daily 80 g 1 7 Active Immunizations Name Administration Dates Next Due PNEUMOCOCCAL POLYSACCHARIDE PPV23 07/07/2017 TDAP 07/07/2017 Family History Medical History Relation Name Comments Heart Problems Maternal Grandmother Relation Name Status Comments Brother Alive Father Alive Maternal Grandmother Alive Mother Alive Sister Alive Social History Tobacco Use Types Packs/Day Years Used Date Smoking Tobacco: Some Days Cigarettes Smokeless Tobacco: Never Comments:Social smoker Alcohol Use Standard Drinks/Week Comments Yes 0 (1 standard drink = 0.6 oz pur e alcohol) weekends Social Connections Answer Date Recorded Social Connections and Isolation 0 05/09/2019 Financial Resource Strain Answer Date R ecorded Financial Resource Strain 0 2018 Stress Answer Date Recorded Stress 0 05/09/2019 Physical Activity Answer Date Recorded Physical Activity 0 05/09/2019 Food Insecurity Answer Date Recorded Food 0 05/09/2019 Transportation Needs Answer Date Record ed Transportation 0 05/09/2019 Housing Stability Answer Date Recorded Housing 0 05/09/2019 Safety and Environment Answer Date Jovany rded Safety 0 05/09/2019 Utilities Answer Date Recorded Utilities 0 05/09/2019 Employment Answer Date Recorded Employment 0 05/09/2019 Sex and Gender Information Value Date Recorded Sex Assigned at Male 07/13/2017 12:32 PM PDT Legal Sex Male 5:46 PM PDT Gender Identity Male 07/13/2017 12:32 PM PDT Sexual Orientation Straight 07/13/2017 12 :32 PM PDT Last Filed Vital Signs Vital Sign Reading Time Taken Comments Blood Pressure 120/82 07/07/2017 9:49 AM EDT Pulse 72 07/07/2017 9:49 AM EDT Temperature 37 ??C (98.6 ??F) 07/07/2017 9:49 AM EDT Respiratory Rate 18 07/07/2017 9:49 AM EDT Oxygen Saturation - - Inhaled Oxygen Concentration - - Weight 69 kg (152 lb 1.6 oz) 07/07/2017 9:49 AM EDT Height 170.7 cm (5' 7.21 ) 07/07/2017 9:49 AM ED T Body Mass Index 23.68 07/07/2017 9:49 AM EDT Plan of Treatment Not on file Insurance [employer] Care Teams Chiller Tender Relationship Specialty Start Date End Date Jerald Borges FNP [address] [place] [address] PCP - General Family Medicine, ELECTRICIAN JOURNEYMAN WIREMAN 05/06/17
--- OUTSIDE RECORDS SUMMARY | 2024-10-29 12:41 | XMS_ITS | Encounter Summary ---
Author Organization [facility] [employer] Address [address] [place] [address] Care Team Providers Care Diabetologist Name Role Phone Tiffany Bailey DO Primary Care Provider + [phone] Reason for Visit * Reason Onset Date Comments Chart prep 10/28/2024 Encounter Details Date Type Department Care Team ([facility] st Contact Info) Description 10/28/2024 Telephone [facility] [address], [place] [phone] Tiffany Bailey DO [address] [place] [address] Chart prep Social History Tobacco Use Types Packs/Day Years [...] encounter Miscellaneous Notes * Telephone Encounter - Olinda Kang MA - 10/28/2024 2:31 PM EST Chart Prep Labs: not done Images: not done Vaccines due: yes Referrals: no showed on 05/03/24 Screenings: Up to date Overdue care gaps: SDOH, PHQ-9 documented in this encounter Plan of Treatment Not on file documented as of this encounter Visit Diagnoses Not on filedocumented in this encounter Care Teams Diabetologist Relationship Specialty Start Date End Date Tiffany Bailey DO [address] [place] [id number] PCP - General Family Medicine 05/26/24 documented as of this encounter
[2024-10-29 13:42] LABS: Estimated Average Glucose 105 mg/dL; Hemoglobin A1C 65.2784 umol/L; Hemoglobin A1c % 5.3 % (<6.0); Total Hemoglobin (HGBA1C) 1904.0204 umol/L
[2024-10-29 13:47] LABS: Anion Gap 9 (12-20); Blood Urea Nitrogen 11 mg/dL (9-16); Carbon Dioxide 26 mmol/L (22-29); Chloride 108 mmol/L (96-108); Estimated Glomerular Filt Rate > 60; Glucose Random 77 mg/dL (60-115); Potassium 3.8 mmol/L (3.3-5.1); Sodium 139 mmol/L (135-145)
[2024-10-30 03:39] LABS: HBS Num1 0.95 mIU/mL (0-7.99); HBc Num1 0.11 S/CO (0.00-0.79); HBsAGNum1 0.27 S/CO (0.00-0.99); HIV AB/AG Nonreactive (Nonreactive); HIV Num 1 0.06 S/CO (0.00-0.99); Hepatitis A Antibody IgM 0.16 Index (0-0.79); Hepatitis B Core Antibody Nonreactive (Nonreactive); Hepatitis B Surface Antigen Negative (Negative); ~HepC Num1 0.12 S/CO (0.00-0.79); ~Hepatitis A Antibody IgM Nonreactive (Nonreactive); ~Hepatitis B Surface Antibody NONREACTIVE (Nonreactive); ~Hepatitis C Antibody Nonreactive (Nonreactive)
[2024-11-01 08:14] LABS: RPR Rapid Plasma Reagin REACTIVE (NON-REACTIVE)
[2024-11-01 08:29] LABS: TS Negative Control Passed; TS Panel A 0; TS Panel B 0; TS Positive Control Passed; TSpotTB Negative (Negative)
[2024-11-01 12:33] LABS: Rapid Plasma Reagin Ab Titer 1:16
[2024-11-02 03:43] LABS: Mumps Virus IgG Antibody >300.00 AU/mL; Rubella IgG Antibody 5.32 Index; Rubeola IgG (Measles) <13.50 AU/mL
== END 2024-10-29 12:04 | disposition home or self-care (01) ==
LOC: HO.HHCL 12:03
PROVIDERS: Visit Provider Internal Medicine
DX: Z00.00 Encounter for general adult medical examination without abnormal findings (principal); L29.89 Other pruritus; Z20.2 Contact with and (suspected) exposure to infections with a predominantly sexual mode of transmission
CPT/HCPCS: 36415; 80048; 83036; 86481; 86592; 86593; 86704; 86706; 86709; 86735; 86762; 86765; 86803; 87340; 87389